=== PATIENT | female | born 1980 | race Caucasian/White ===

== ENCOUNTER → 2019-03-17 | Outpatient (CLI) | payer BC ==
[~2019-03-17] MED LIST: ACE3 PO; Acetaminophen/Codeine PO; BARIUM SULFATE 176 GM BTL PO ONE; BARIUM SULFATE 340 GM POWD ONE; IBU800 PO; Ibuprofen PO; PREN1TAB15 PO
--- NOTE | 2019-03-17 14:25 | RADIOLOGY IMAGING REPORT ---
FACILITY: [facility] - [place] PATIENT NAME: Shyanne Swift : 1980 MR: [id number] V: [id number] EXAM DATE: ORDERING PHYSICIAN: GONSALO SHARPE TECHNOLOGIST: Location: [facility] [place] Patient: Shyanne Swift : 1980 Visit/Account:[id number] Date of Sevice: 03/17/2019 Exam type: XR UPPER GI SERIES W/O KUB History: Acid reflux disease Comparison: None. Findings: Double contrast upper GI series was performed with thick and thin barium and air contrast moderate am ount of gastroesophageal reflux was observed. There is no evidence of significant narrowing or mucos al erosion within the esophagus. No abnormality the stomach duodenal bulb or duodenal C-loop was see n. The dose area product was 865.36 micro-Cabral per meter squared IMPRESSION: 1. Moderate gastroesophageal reflux although no evidence of esophageal narrowing or mucosal erosion Report Dictated By: Lora Patel MD at 03/17/2019 2:14 PM Report E-Signed By: Lora Patel MD at 03/17/2019 2:17 PM WSN:[email or web address]
== END ==
LOC: RAD 03-13 14:17
PROVIDERS: ATTEND Family Medicine
DX: K21.9 Gastro-esophageal reflux disease without esophagitis (principal)
CPT/HCPCS: 74240